=== PATIENT | female | born 1950 | race Caucasian/White ===

== ENCOUNTER 2021-05-22 09:32 | Emergency (ER) | payer MEDICARE, OTHER ==
--- NOTE | 2021-05-22 10:37 | EDM.PDOC ---
ED HPI GENERAL MEDICAL PROBLEM - General Chief Complaint: Lower Extremity Injury/Pain Stated Complaint: RIGHT HIP PAIN Time Seen by Provider: 05/22/21 10:00 Source of Information: Reports: Patient History Limitations: Reports: No Limitations - History of Present Illness INITIAL COMMENTS - FREE TEXT/NARRATIVE: pt with Hx of chronic right hip pain secondary to degenerative disease that she has for about 10 years comes in with c/o acute right hip pain started suddenly around noon , describe as sharp steady, worsens with any movement , denies fever, chills or Hx of injury or any other associated sx or concerns. right hip Pain Score (Numeric/FACES): 8 - Related Data Allergies Allergy/AdvReac Type Severity Reaction Status Date / Time Penicillins Allergy Hives Verified 05/22/21 09:45 Home Meds: Home Meds Aspirin [Lo-Dose Aspirin EC] 81 mg PO DAILY 05/22/21 [History] Cholecalciferol (Vitamin D3) [Vitamin D3] 2,000 unit PO DAILY 05/22/21 [History] Furosemide [Lasix] 20 mg PO DAILY 05/22/21 [History] Glucosam/Chond/Collagen/Hyalur [Glucosamine Chondroitin] 1 tab PO DAILY 05/22/21 [History] Losartan [Cozaar] 25 mg PO DAILY 05/22/21 [History] Metoprolol Succinate [Toprol XL 100mg] 100 mg PO DAILY 05/22/21 [History] Multivitamin 1 each PO DAILY 05/22/21 [History] Pantoprazole [ProTONIX] 40 mg PO DAILY 05/22/21 [History] atorvaSTATin [Lipitor] 20 mg PO DAILY 05/22/21 [History] Past Medical History HEENT History: Reports: Cataract Cardiovascular History: Reports: Blood Clots/VTE/DVT, Heart Failure, High Cholesterol, Hypertension, Stents Endocrine/Metabolic History: Reports: Diabetes, Type I Who Manages Your Pump: Patient (Self) Do You Give Correction Boluses or Sliding Scale: Yes Patient/Family Able to Supply Written Copy of Sliding Scale: No - Past Surgical History HEENT Surgical History: Reports: Cataract Surgery Cardiovascular Surgical History: Reports: Coronary Artery Bypass, Coronary Artery Stent GI Surgical History: Reports: Appendectomy, Cholecystectomy, Colonoscopy Female Surgical History: Reports: Section, Hysterectomy Musculoskeletal Surgical History: Reports: Amputation, Shoulder Surgery Social & Family History - Tobacco Use Tobacco Use Status *Q: Never Tobacco User - Alcohol Use Days Per Week of Alcohol Use: 3 Number of Drinks Per Day: 1 Total Drinks Per Week: 3 - Recreational Drug Use Recreational Drug Use: No Review of Systems - Review of Systems Review Of Systems: See Below Constitutional: Reports: No Symptoms Respiratory: Reports: No Symptoms Cardiovascular: Reports: No Symptoms GI/Abdominal: Reports: No Symptoms ED EXAM, GENERAL - Physical Exam Exam: See Below Exam Limited By: No Limitations General Appearance: Alert, Mild Distress Eye Exam: Bilateral Eye: Normal Inspection Respiratory/Chest: No Respiratory Distress, Lungs Clear Cardiovascular: Normal Peripheral Pulses, Regular Rate, Rhythm GI/Abdominal: Normal Bowel Sounds, Soft, Non-Tender Extremities: Normal Inspection, Other (tender with movement of right hip, no swelling or any deformities. ) Neurological: Alert, Oriented, CN II-XII Intact Course - Vital Signs Text/Narrative:: Xray shows no acute findings and labs are stable, sed rate is little up but would be nl for her age. pt is comfortable after Ativan and hydrocodone, she is ambulatory. her hip pain appear to be secondary to muscular pain and degenerative pain. will DC home with rx on Flexeril PRN for 1 week and recomandatrion for supportive mng Last Recorded V/S: Last Vital Signs Temp 36.2 C 05/22/21 11:33 Pulse 67 05/22/21 11:33 Resp 16 05/22/21 11:33 BP 134/64 05/22/21 11:33 Pulse Ox 99 05/22/21 11:33 - Orders/Labs/Meds Orders: Active Orders 24 hr Category Date Time Status Hip Min 2V or 3V w Pelvis Rt [CR] Stat Exams 05/22/21 09:45 Taken Labs: Laboratory Tests 05/22/21 05/22/21 Range/Units 10:55 10:55 WBC 7.0 (3.0-10.3) x10-3/uL RBC 3.82 (3.60-5.20) x10(6)uL Hgb 12.5 (11.4-15.5) g/dL Hct 37.8 (34.2-48.2) % MCV 99.0 (76.7-100.5) fL MCH 32.7 (23.9-33.9) pg MCHC 33.0 (31.9-34.8) g/dL RDW 15.8 (12.3-16.5) % Plt Count 186 (151-488) x10(3)uL ESR 25 H (0-20) mm/hr Sodium 143 (135-145) mmol/L Potassium 4.5 (3.5-5.3) mmol/L Chloride 103 (100-110) mmol/L Carbon Dioxide 31 (21-32) mmol/L BUN 31 H (7-18) mg/dL Creatinine 1.5 H (0.55-1.02) mg/dL Est Cr Clr Drug Dosing 27.21 mL/min Estimated GFR (MDRD) 34 L (>60) BUN/Creatinine Ratio 20.7 H (9-20) Glucose 147 H (80-116) mg/dL Calcium 8.8 (8.6-10.2) mg/dL Total Bilirubin 0.8 (0.1-1.3) mg/dL AST 23 (5-25) IU/L ALT 23 (12-36) U/L Alkaline Phosphatase 124 H (56-112) IU/L Total Protein 7.3 (6.0-8.0) g/dL Albumin 3.4 (3.2-4.6) g/dL Globulin 3.9 g/dL Albumin/Globulin Ratio 0.9 Meds: Medications Discontinued Medications Generic Name Dose Route Start Last Admin Trade Name Freq PRN Reason Stop Dose Admin Hydrocodone Bitart/Acetaminophen 1 tab 05/22/21 10:38 05/22/21 10:55 Acetaminophen/Hydrocodone 325-5 Mg Tab PO 05/22/21 10:39 1 tab ONETIME ONE Administration Lorazepam 1 mg 05/22/21 10:38 05/22/21 10:57 Lorazepam 2 Mg/Ml Sdv IM 05/22/21 10:39 1 mg ONETIME ONE Administration Departure - Departure Time of Disposition: 11:53 Disposition: Home, Self-Care 01 Clinical Impression: Hip pain, right - Discharge Information Referrals: Dominik Mae PA-C [Primary Care Provider] - Forms: ED Department Discharge Sepsis Event Note (ED) - Focused Exam Vital Signs: Vital Signs Temp Pulse Resp BP Pulse Ox 05/22/21 11:33 36.2 C 67 16 134/64 99 05/22/21 09:35 35.8 C L 60 20 160/73 H 96 - My Orders Last 24 Hours: My Active Orders 05/22/21 09:45 Hip Min 2V or 3V w Pelvis Rt [CR] Stat - Assessment/Plan Last 24 Hours: My Active Orders 05/22/21 09:45 Hip Min 2V or 3V w Pelvis Rt [CR] Stat
[2021-05-22] MEDS ORDERED: LORazepam 2 MG/ML SDV IM ONE (10:38)
[2021-05-22] MEDS ORDERED: Acetaminophen/HYDROcodone 325-5 MG Tab PO ONE (10:38)
--- NOTE | 2021-05-22 16:54 | CR ---
INDICATION: Pain. No history of trauma. RIGHT HIP WITH PELVIS: AP view of the pelvis, right hip, and lateral view of the right hip were obtained 05/22/21 - no comparisons. Diminished bone density is suggested which may be on the basis of osteoporosis or osteomalacia and should be correlated clinically. Hypertrophic degenerative changes and disc disease are noted at L4-L5. There appears to be narrowing of both hip joint spaces, right greater than left. Relatively minimal hypertrophic degenerative changes are noted at the hip joints, however. No acute bone or joint abnormality was seen. Calcifications are noted in iliac and especially femoral arteries. IMPRESSION: 1. Osteoarthritis. 2. ASD. 3. Suggestion of demineralization. 4. DJD and disc disease L4-L5. MTDD
== END 2021-05-22 12:20 | disposition home or self-care (01) ==
LOC: FB.ED 09:32
DX: M25.551 Pain in right hip (principal); I11.0 Hypertensive heart disease with heart failure; I50.9 Heart failure, unspecified; E78.00 Pure hypercholesterolemia, unspecified; E10.9 Type 1 diabetes mellitus without complications; Z95.1 Presence of aortocoronary bypass graft; Z88.0 Allergy status to penicillin; Z79.82 Long term (current) use of aspirin; Z79.899 Other long term (current) drug therapy
CPT/HCPCS: 36415; 73502; 80053; 85027; 85651; 96372; 99284; A9270; J2060

== ENCOUNTER 2021-06-03 15:08 | Inpatient (IN) | payer MEDICARE, OTHER ==
[2021-06-06] MEDS ORDERED: GLUCAGON 3 MG NAS PRN (16:22)
[2021-06-06] MEDS ORDERED: Nystatin Topical Powder 15 GM Bottle TOP PRN (16:22)
[2021-06-06] MEDS ORDERED: Non-Formulary Medication 1 Each (Insulin Detemir [Levemir] 100 UNIT/ML Pen) SUBCUT PRN (16:22)
[2021-06-06] MEDS ORDERED: INSULIN ASPART SCH (16:45)
[2021-06-06] MEDS ORDERED: Glucagon,Human Recombinant 1 MG Vial IM PRN (16:46)
[2021-06-06] MEDS: Acetaminophen 325 MG Tab PO SCH ×2 (17:27→21:07)
[2021-06-06] MEDS: Apixaban 5 MG Tab PO SCH (21:06)
[2021-06-06] MEDS: atorvaSTATin 20 MG Tab PO SCH (21:06)
[2021-06-06] MEDS: Cholecalciferol (Vitamin D3) 25 MCG Tab PO SCH (21:07)
[2021-06-07] MEDS: Albuterol/Ipratropium 3.0-0.5 MG/3 ML Neb Soln NEB PRN (01:00)
[2021-06-07] MEDS: Acetaminophen 325 MG Tab PO SCH ×4 (09:50→21:49)
[2021-06-07] MEDS: Metoprolol Succinate 100 MG Tab.ER PO SCH (09:55)
[2021-06-07] MEDS: Furosemide 20 MG Tab PO SCH (09:59)
[2021-06-07] MEDS: Apixaban 5 MG Tab PO SCH ×2 (09:59→21:48)
[2021-06-07] MEDS: Aspirin 81 MG Tab.EC PO SCH (09:59)
[2021-06-07] MEDS: Pantoprazole 40 MG Tab.CR PO SCH (10:00)
[2021-06-07] MEDS: Magnesium Chloride 64 MG Tab.ER PO SCH (10:00)
[2021-06-07] MEDS: Tiotropium BR/Olodaterol HCL 4 GM Inhalation Spray 2.5mcg/1 dose; 10 doses INH SCH (10:00)
[2021-06-07] MEDS: predniSONE 20 MG Tab PO SCH (10:00)
[2021-06-07] MEDS: atorvaSTATin 20 MG Tab PO SCH (21:49)
[2021-06-07] MEDS: Cholecalciferol (Vitamin D3) 25 MCG Tab PO SCH (21:51)
[2021-06-08] MEDS: Pantoprazole 40 MG Tab.CR PO SCH (06:28)
[2021-06-08] MEDS: Magnesium Chloride 64 MG Tab.ER PO SCH (09:27)
[2021-06-08] MEDS: Apixaban 5 MG Tab PO SCH ×2 (09:27→21:10)
[2021-06-08] MEDS: Furosemide 20 MG Tab PO SCH (09:27)
[2021-06-08] MEDS: Aspirin 81 MG Tab.EC PO SCH (09:27)
[2021-06-08] MEDS: Tiotropium BR/Olodaterol HCL 4 GM Inhalation Spray 2.5mcg/1 dose; 10 doses INH SCH (09:28)
[2021-06-08] MEDS: Metoprolol Succinate 100 MG Tab.ER PO SCH (09:28)
[2021-06-08] MEDS: Acetaminophen 325 MG Tab PO SCH ×4 (09:28→21:10)
[2021-06-08] MEDS: predniSONE 20 MG Tab PO SCH (09:28)
[2021-06-08] MEDS: Albuterol/Ipratropium 3.0-0.5 MG/3 ML Neb Soln NEB PRN (21:09)
[2021-06-08] MEDS: Cholecalciferol (Vitamin D3) 25 MCG Tab PO SCH (21:10)
[2021-06-08] MEDS: atorvaSTATin 20 MG Tab PO SCH (21:10)
[2021-06-09] MEDS: Pantoprazole 40 MG Tab.CR PO SCH (05:48)
[2021-06-09] MEDS: Aspirin 81 MG Tab.EC PO SCH (08:50)
[2021-06-09] MEDS: Apixaban 5 MG Tab PO SCH ×2 (08:51→21:29)
[2021-06-09] MEDS: Magnesium Chloride 64 MG Tab.ER PO SCH (08:51)
[2021-06-09] MEDS: Furosemide 20 MG Tab PO SCH (08:52)
[2021-06-09] MEDS: Tiotropium BR/Olodaterol HCL 4 GM Inhalation Spray 2.5mcg/1 dose; 10 doses INH SCH (08:53)
[2021-06-09] MEDS: Acetaminophen 325 MG Tab PO SCH ×4 (08:55→21:29)
[2021-06-09] MEDS: Metoprolol Succinate 100 MG Tab.ER PO SCH (09:00)
[2021-06-09] MEDS: Cholecalciferol (Vitamin D3) 25 MCG Tab PO SCH (21:29)
[2021-06-09] MEDS: atorvaSTATin 20 MG Tab PO SCH (21:29)
[2021-06-10] MEDS: Pantoprazole 40 MG Tab.CR PO SCH (06:39)
[2021-06-10] MEDS: Aspirin 81 MG Tab.EC PO SCH (09:26)
[2021-06-10] MEDS: Magnesium Chloride 64 MG Tab.ER PO SCH (09:26)
[2021-06-10] MEDS: Furosemide 20 MG Tab PO SCH (09:26)
[2021-06-10] MEDS: Tiotropium BR/Olodaterol HCL 4 GM Inhalation Spray 2.5mcg/1 dose; 10 doses INH SCH (09:26)
[2021-06-10] MEDS: Apixaban 5 MG Tab PO SCH ×2 (09:26→21:02)
[2021-06-10] MEDS: Metoprolol Succinate 100 MG Tab.ER PO SCH (09:27)
[2021-06-10] MEDS: Acetaminophen 325 MG Tab PO SCH ×4 (09:27→21:02)
--- NOTE | 2021-06-10 10:52 | PN ---
DATE SEEN: 06/08/2021 SUBJECTIVE: Molly Curtis is a 70-year-old female, sustained a fracture of the right hip. She underwent surgical management under the care of [facility]. Did have some cardiac irritability but discharged in good condition. Is undergoing therapy and care. MEDICATIONS: Reviewed and appropriate. OBJECTIVE: VITAL SIGNS: 36.7, 74, 134/51, 14, 98. GENERAL: Appears comfortable. NECK: Benign. Thyroid small. No carotid bruits. CHEST: Clear in all lung dougherty. No adventitious sounds. HEART: No ectopy or murmur. ABDOMEN: Benign. Surgical wound with lázaro intact. ASSESSMENT: Postop rehab, acute right hip fracture. PLAN: Therapy in place. We will check hemoglobin to make sure anemia is comfortable. /[id number] 1200 DRE/JACK
--- NOTE | 2021-06-10 10:52 | PN ---
DATE SEEN: 06/09/2021 SUBJECTIVE: Molly Curtis is a 70-year-old female seen today for review. Admitted to swing bed for surgically repaired right hip fracture. Pain is doing well. Moderate ambulatory skills and activity up and appropriate. PT more actively involved in the future. MEDICATIONS: Reviewed and appropriate. LABORATORY STUDIES: CBC revealed white count 12,500, hemoglobin 10.4, hematocrit 32.2, platelets 245,000. PHYSICAL EXAMINATION: GENERAL: Appears comfortable. Speech was fluent. NECK: Benign. CHEST: Clear in all lung dougherty. HEART: No ectopy or murmur. ABDOMEN: Benign. Surgical wound, right hip, intact. ASSESSMENT: Right hip fracture with rehab. PLAN: Meds, care, and treatment on board. Analgesics appropriate. PT more actively involved. /[id number] [id number] DRE/JACK
--- NOTE | 2021-06-10 10:52 | PN ---
DATE SEEN: 06/07/2021 Molly Curtis is a 70-year-old female admitted on 06/06 for rehab. She had an occult osteoporotic fracture of her right hip. Underwent surgical repair on 05/29, doing well. In here for rehab. Had a pretty good night. Sleep was a little bit impaired. Monitoring sugars closely, insulin pump in place. Pain is controlled. LABORATORY STUDIES: None. PHYSICAL EXAMINATION: VITAL SIGNS: Stable. Appears comfortable. CHEST: Clear in all lung dougherty. HEART: Regular. ABDOMEN: Benign. Incision was viewed with nursing staff in attendance, healing well. ASSESSMENT: Rehab right hip fracture. PLAN: Medications, care, and treatment. Appropriate diabetic diet. Complementary care and well being. /[id number] 1601 DRE/JACK
--- NOTE | 2021-06-10 10:52 | HP ---
ADMISSION DATE: 06/06/2021 CHIEF COMPLAINT: Right hip fracture rehabilitation. HISTORY OF PRESENT ILLNESS: Molly Curtis is a 70-year-old female, lives in [place], [place], was admitted to [facility] in transfer from [place]. She underwent surgical repair of right displaced femoral neck fracture under the care of Dr. Ibanez [facility]. She had a lengthy hospital course and was discharged for rehab care and treatment. She was seen in consultation by Cardiology and Endocrinology and appropriate providers. Was transferred for rehab and intervention. DAILY MEDICATIONS: Include: 1. Anoro Ellipta 1 puff one daily, COPD. 2. Baby aspirin 81 mg, CAD prevention. 3. Tramadol 50 mg q.i.d. p.r.n. for pain. 4. Magnesium chloride 64 mg daily, hypomagnesemia. 5. Prednisone 40 mg daily, 5 days duration. 6. Eliquis 5 mg b.i.d., atrial fibrillation and clot prevention. 7. Furosemide 20 mg 1 p.o. daily, edema. 8. Protonix 40 mg 1 p.o. daily, GERD. 9. Atorvastatin 20 mg 1 p.o. daily, hyperlipidemia . 10.Metoprolol-XL 100 mg 1 p.o. daily, blood pressure/CAD. 11.Vitamin D3 one daily, nutrition. 12.Levemir 12 units daily, . 13.Cal Nev Ari-3. 14.Insulin pump. ALLERGIES: Noted allergies include penicillin, adhesives, bee stings, Biaxin, latex, and talc. PAST MEDICAL HISTORY: Significant for again right hip prosthesis on 05/29/2021. She has had a remote appendectomy, remote primary section, remote cholecystectomy, coronary artery bypass surgery x3, hysterectomy for benign disease, right partial arm amputation, remote tonsillectomy, and tubal ligation. No other operative procedures, hospitalizations, unusual childhood diseases, major injuries, or fractures. Treated COPD, diabetes mellitus, hypertension, and hyperlipidemia. SOCIAL HISTORY: Lives in [place]. Happily , in good health. One grown son. 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 Former smoker, 2 pack per day, 25 years duration. No chewing, no vaping. FAMILY HISTORY: Noncontributory. REVIEW OF SYSTEMS: CONSTITUTIONAL: Feeling well. Pain is reasonable. EYES: Sees well. EARS: Hears well, some difficulty in crowds. OROPHARYNX: Intact dentition. CARDIOVASCULAR: Denies chest pain, though does have coronary artery bypass surgery. RESPIRATORY: Mild chronic cough, COPD. GASTROINTESTINAL: Regular predictable stools. GENITOURINARY: Good voiding pattern. No blood in urine. ORTHOPEDIC: Please see HPI. ENDOCRINE: Diabetes, under control. SKIN: No eruptions or lesions. PHYSICAL EXAMINATION: VITAL SIGNS: Stable. GENERAL: Elderly, cooperative, conversant, in good spirits. HEENT: Funduscopic benign. Bright TMs. Clear nasal discharge. Mouth and oropharynx are clear. Fair dentition. Tongue midline. NECK: Benign. Thyroid, small. No carotid bruits. CHEST: On auscultation, clear all lung dougherty. HEART: On auscultation, no ectopy or murmur. Sternotomy scar well healed. ABDOMEN: Benign. Multiple surgical scars well healed. No hepatosplenomegaly. GENITOURINARY AND RECTAL: Deferred. EXTREMITIES: Well perfused. Mild venous stasis changes. Good peripheral pulses. Sensation intact. Surgical staple wound of right hip intact. ASSESSMENT: Rehab stay for right total hip arthroplasty. SECONDARY DIAGNOSIS: Multiple health concerns clearly defined. PLAN: All looks well. Pain will be well controlled. PT/OT involved. Diabetic diet, insulin pump. Options for care and treatment. Expect a moderate length of stay. /[id number] 1650 DRE/JACK
--- NOTE | 2021-06-10 11:04 | PN ---
DATE SEEN: 06/10/2021 SUBJECTIVE: Molly Curtis is a delightful 70-year-old female in rehab therapy. Had a right hip replacement. Doing well. PT to be more actively involved. Pain appears to be controlled. Medications reviewed and appropriate all timely. OBJECTIVE: VITAL SIGNS: 36.3, 77, 151/76, 16, and 95. GENERAL: The patient appears comfortable. Mood was stable. NECK: Benign. CHEST: Clear. HEART: Regular. ABDOMEN: Benign. EXTREMITIES: Wound healing well. ASSESSMENT: 1. Rehab. 2. Right hip fracture and repair. PLAN: Continue PT. Determination of length of stay per PT. /[id number] 1055 DRE/JACK
[2021-06-10] MEDS: atorvaSTATin 20 MG Tab PO SCH (21:02)
[2021-06-10] MEDS: Cholecalciferol (Vitamin D3) 25 MCG Tab PO SCH (21:03)
[2021-06-11] MEDS: Pantoprazole 40 MG Tab.CR PO SCH (06:37)
[2021-06-11] MEDS: Magnesium Chloride 64 MG Tab.ER PO SCH (08:24)
[2021-06-11] MEDS: Metoprolol Succinate 100 MG Tab.ER PO SCH (08:24)
[2021-06-11] MEDS: Aspirin 81 MG Tab.EC PO SCH (08:25)
[2021-06-11] MEDS: Apixaban 5 MG Tab PO SCH ×2 (08:25→20:58)
[2021-06-11] MEDS: Furosemide 20 MG Tab PO SCH (08:25)
[2021-06-11] MEDS: Tiotropium BR/Olodaterol HCL 4 GM Inhalation Spray 2.5mcg/1 dose; 10 doses INH SCH (08:25)
[2021-06-11] MEDS: Acetaminophen 325 MG Tab PO SCH ×4 (08:26→20:59)
[2021-06-11] MEDS: atorvaSTATin 20 MG Tab PO SCH (20:59)
[2021-06-11] MEDS: Cholecalciferol (Vitamin D3) 25 MCG Tab PO SCH (21:00)
[2021-06-11] MEDS: traMADol 50 MG Tab PO PRN (23:38)
[2021-06-12] MEDS: Pantoprazole 40 MG Tab.CR PO SCH (05:02)
[2021-06-12] MEDS: Tiotropium BR/Olodaterol HCL 4 GM Inhalation Spray 2.5mcg/1 dose; 10 doses INH SCH (08:24)
[2021-06-12] MEDS: Aspirin 81 MG Tab.EC PO SCH (08:24)
[2021-06-12] MEDS: Metoprolol Succinate 100 MG Tab.ER PO SCH (08:25)
[2021-06-12] MEDS: Acetaminophen 325 MG Tab PO SCH ×4 (08:25→20:50)
[2021-06-12] MEDS: Magnesium Chloride 64 MG Tab.ER PO SCH (08:25)
[2021-06-12] MEDS: Apixaban 5 MG Tab PO SCH ×2 (08:26→20:49)
[2021-06-12] MEDS: Furosemide 20 MG Tab PO SCH (08:26)
--- NOTE | 2021-06-12 14:30 | PN ---
DATE SEEN: 06/11/2021 SUBJECTIVE: Molly Curtis is a 70-year-old female admitted for rehab status post right hip fracture. Doing remarkably well. Pain is controlled with limited intervention. Rehab is happy with well-being. LABORATORY STUDIES: Hemoglobin on 06/08/2021 was 10.4, white count 12,500. PHYSICAL EXAMINATION: VITAL SIGNS: Stable. NECK: Benign. Thyroid small. CHEST: Clear in all lung dougherty. HEART: No murmurs. ABDOMEN: Benign. Surgical wound healing well. ASSESSMENT: Right hip fracture repair. PLAN: Therapy in place. Short-term stay expected. /[id number] 1101 DRE/JACK
--- NOTE | 2021-06-12 14:31 | PN ---
DATE SEEN: 06/12/2021 SUBJECTIVE: Molly Curtis is a delightful 70-year-old female who has been in rehab. She had a right hip fracture which required surgical management. She is doing wonderfully. PT, OT happy with outcome. Plan discharge on 06/13/2021. Pain controlled comfortably. Laboratory studies, none recent. OBJECTIVE: VITAL SIGNS: Stable and noted. NECK: Benign. Thyroid small. CHEST: Clear in all lung dougherty. HEART: No ectopy or murmur. ABDOMEN: Benign. LABORATORY STUDIES: Noted magnesium 1.5, normal 1.8 to 2.5. Potassium 4.0, on replacement therapy. The wound was healing well. Ariane removed today. ASSESSMENT: Right hip fracture with surgical repair. PLAN: Ariane out today. Plan discharge home tomorrow. Outpatient physical therapy. /[id number] 1104 DRE/JACK
[2021-06-12] MEDS: atorvaSTATin 20 MG Tab PO SCH (20:49)
[2021-06-12] MEDS: Cholecalciferol (Vitamin D3) 25 MCG Tab PO SCH (20:50)
[2021-06-13] MEDS: traMADol 50 MG Tab PO PRN (01:59)
[2021-06-13] MEDS: Pantoprazole 40 MG Tab.CR PO SCH (06:20)
[2021-06-13] MEDS: Metoprolol Succinate 100 MG Tab.ER PO SCH (08:25)
[2021-06-13] MEDS: Acetaminophen 325 MG Tab PO SCH (08:25)
[2021-06-13] MEDS: Tiotropium BR/Olodaterol HCL 4 GM Inhalation Spray 2.5mcg/1 dose; 10 doses INH SCH (08:26)
[2021-06-13] MEDS: Furosemide 20 MG Tab PO SCH (08:26)
[2021-06-13] MEDS: Magnesium Chloride 64 MG Tab.ER PO SCH (08:26)
[2021-06-13] MEDS: Aspirin 81 MG Tab.EC PO SCH (08:26)
[2021-06-13] MEDS: Apixaban 5 MG Tab PO SCH (08:26)
--- NOTE | 2021-06-13 14:04 | PCM.DCSUM1 ---
Discharge Summary - Hospital Course HPI Initial Comments: Had right total hip replacement due to right femoral neck fracture secondary to osteoporosis done on 05/29/2021, Was seen by cardiology for atrial fibrillation started on Eliquis bid and aspirin dose decreased to 81 mg daily and endocrinology during her acute hospital stay. She was admitted 06/07/2021 to swing bed for rehab services. She has history of COPD, Diabetes, Hyperlipidemia, Hypertension. She has insulin pump and uses Levemir as needed if her pump fails. Diagnosis: Stroke: No - Discharge Data Discharge Date: 06/13/21 Discharge Disposition: Home, Self-Care 01 Condition: Good - Referral to Home Health Primary Care Physician: Dominik Mae PA-C - Discharge Diagnosis/Problem(s) (1) Status post total hip replacement, right SNOMED Code(s): 618236581170, 918425497887 ICD Code: Z96.641 - PRESENCE OF RIGHT ARTIFICIAL HIP JOINT Status: Acute Onset Date: ~05/29/21 (2) COPD (chronic obstructive pulmonary disease) SNOMED Code(s): 91443341 ICD Code: J44.9 - CHRONIC OBSTRUCTIVE PULMONARY DISEASE, UNSPECIFIED Status: Chronic (3) Diabetes SNOMED Code(s): 95869082 ICD Code: E11.9 - TYPE 2 DIABETES MELLITUS WITHOUT COMPLICATIONS Status: Chronic Qualifiers: Diabetes mellitus assistant terminal manager insulin use: with assistant terminal manager use (4) Hypertension SNOMED Code(s): 05335777 ICD Code: I10 - ESSENTIAL (PRIMARY) HYPERTENSION Status: Chronic (5) Hyperlipemia SNOMED Code(s): 18063680 ICD Code: E78.5 - HYPERLIPIDEMIA, UNSPECIFIED Status: Chronic - Patient Summary/Data Consults: Consultations 06/07/21 10:30 Consult to Occupational Therapy [OT Evaluation and Treatment] [CONS] Routine Please Evaluate and Treat. OT Reason for Consult: ADL's This query below is only for informational purposes and is not editable. Admission Diagnosis/Problem: Hip fracture requiring operative repair PT Evaluation and Treatment [CONS] Routine Please Evaluate and Treat. PT Reason for Consult: Strengthening This query below is only for informational purposes and is not editable. Admission Diagnosis/Problem: Hip fracture requiring operative repair Hospital Course: Molly progressed well with PT/OT during swing bed stay, will go home with outpatient PT/OT. She was started on Eliquis bid and aspirin reduced from 325 mg to 81 mg in [place], will go home with new prescriptions of these. Also she was started on Anoro for her COPD, she has been off oxygen during her stay. She had issues with swallowing extended release Magnesium so will be discharged with Magnesium oxide 400 mg bedtime that can be crushed and taken in applesauce. She was using Tylenol 650 mg qid scheduled and Tramadol as needed, she has not required any Tramadol since night. Will follow up with Dr Ibanez on Jul 15 a barron Lopez on Jul 21. - Patient Instructions Diet: Diabetic Diet Activity: As Tolerated Driving: May Drive Today Showering/Bathing: May Shower Notify Provider of: Fever, Increased Pain, Nausea and/or Vomiting Other/Special Instructions: Follow up with Dr Ibanez on Jul 15. Follow up with Dr Lopez on Jul 21. - Discharge Plan *PRESCRIPTION DRUG MONITORING PROGRAM REVIEWED*: Not Applicable *COPY OF PRESCRIPTION DRUG MONITORING REPORT IN PATIENT GIL: Not Applicable Prescriptions/Med Rec: Umeclidinium Brm/Vilanterol Tr [Anoro Ellipta 62.5-25 MCG] 1 puff IH DAILY #1 inhaler Apixaban [Eliquis] 5 mg PO BID #60 tab Aspirin [Lo-Dose Aspirin EC] 81 mg PO DAILY #30 tab Magnesium Oxide 400 mg PO BEDTIME #30 tablet Home Medications: Home Meds Cholecalciferol (Vitamin D3) [Vitamin D3] 2,000 unit PO BEDTIME 05/22/21 [History] Furosemide [Lasix] 20 mg PO BID 05/22/21 [History] Metoprolol Succinate [Toprol XL 100mg] 100 mg PO DAILY 05/22/21 [History] Pantoprazole [ProTONIX] 40 mg PO DAILY 05/22/21 [History] atorvaSTATin [Lipitor] 20 mg PO BEDTIME 05/22/21 [History] Acetaminophen [Tylenol] 650 mg PO QID 06/06/21 [History] Glucagon [Baqsimi] 3 mg SYMONE ASDIRECTED PRN 06/06/21 [History] Insulin Aspart [NovoLOG] 0 units .XX ASDIRECTED 06/06/21 [History] Insulin Detemir [Levemir] 12 units SUBCUT DAILY PRN 06/06/21 [History] Nystatin 1 applic TOP TID PRN 06/06/21 [History] Apixaban [Eliquis] 5 mg PO BID #60 tab 06/13/21 [Rx] Aspirin [Lo-Dose Aspirin EC] 81 mg PO DAILY #30 tab 06/13/21 [Rx] Magnesium Oxide 400 mg PO BEDTIME #30 tablet 06/13/21 [Rx] Umeclidinium Brm/Vilanterol Tr [Anoro Ellipta 62.5-25 MCG] 1 puff IH DAILY #1 inhaler 06/13/21 [Rx] Patient Handouts: Total Hip Replacement, Epry-lw-Dfia, Fall Prevention in Hospitals, Adult, Atrial Fibrillation, [id number], Venous Thromboembolism Prevention - Discharge Summary/Plan Comment DC Time >30 min.: No Total # of Minutes for Discharge Time: 15 min - General Info Date of Service: 06/13/21 Subjective Update: Molly is doing well, progressed with PT/OT, has not used any Tramadol for over 48 hours, scheduled Tylenol. She has been managing her blood sugars for her pump on her own. She had a bowel movement yesterday, urinating well. Will be going home with outpatient PT/OT in [place]. Functional Status: Reports: Pain Controlled, Tolerating Diet, Ambulating, Urinating - Patient Data Vitals - Most Recent: Last Vital Signs Temp 98.6 F 06/13/21 08:00 Pulse 86 06/13/21 08:25 Resp 18 06/13/21 08:00 BP 126/55 L 06/13/21 08:25 Pulse Ox 98 06/13/21 08:00 Weight - Most Recent: 186 lb 2 oz Med Orders - Current: Current Medications Discontinued Medications Acetaminophen (Acetaminophen 325 Mg Tab) 650 mg PO QID [facility] Last Admin: 06/13/21 08:25 Dose: 650 mg Documented by: Albuterol/Ipratropium (Albuterol/Ipratropium 3.0-0.5 Mg/3 Ml Neb Soln) 3 ml NEB Q6H PRN PRN Reason: Cough Last Admin: 06/08/21 21:09 Dose: 3 ml Documented by: Apixaban (Apixaban 5 Mg Tab) 5 mg PO BID [facility] Last Admin: 06/13/21 08:26 Dose: 5 mg Documented by: Aspirin (Aspirin 81 Mg Tab.Ec) 81 mg PO DAILY [facility] Last Admin: 06/13/21 08:26 Dose: 81 mg Documented by: Atorvastatin Calcium (Atorvastatin 20 Mg Tab) 20 mg PO BEDTIME [facility] Last Admin: 06/12/21 20:49 Dose: 20 mg Documented by: Cholecalciferol (Cholecalciferol (Vitamin D3) 25 Mcg Tab) 50 mcg PO BEDTIME [facility] Last Admin: 06/12/21 20:50 Dose: 50 mcg Documented by: Furosemide (Furosemide 20 Mg Tab) 20 mg PO DAILY [facility] Last Admin: 06/13/21 08:26 Dose: 20 mg Documented by: Glucagon (Glucagon,Human Recombinant 1 Mg Vial) 1 mg IM ASDIRECTED PRN PRN Reason: HYPOGLYCEMIA Magnesium Chloride (Magnesium Chloride 64 Mg Tab.Er) 64 mg PO DAILY [facility] Last Admin: 06/13/21 08:26 Dose: 64 mg Documented by: Metoprolol Succinate (Metoprolol Succinate 100 Mg Tab.Er) 100 mg PO DAILY [facility] Last Admin: 06/13/21 08:25 Dose: 100 mg Documented by: Non-Formulary Medication (Insulin Detemir [Levemir]) 12 units SUBCUT DAILY PRN PRN Reason: IN CASE OF PUMP FAILURE Novolog Per Insulin Pump *Patient Managed* 0 each .XX ASDIRECTED [facility] Nystatin (Nystatin Topical Powder 15 Gm Bottle) 0 gm TOP TID PRN PRN Reason: RASH/ITCHING Pantoprazole Sodium (Pantoprazole 40 Mg Tab.Cr) 40 mg PO DAILY@0600 [facility] Last Admin: 06/13/21 06:20 Dose: 40 mg Documented by: Prednisone (Prednisone 20 Mg Tab) 40 mg PO DAILY [facility] Stop: 06/11/21 09:01 Last Admin: 06/08/21 09:28 Dose: 40 mg Documented by: Tramadol HCl (Tramadol 50 Mg Tab) 50 mg PO QID PRN PRN Reason: MODERATE-SEVERE PAIN Last Admin: 06/13/21 01:59 Dose: 50 mg Documented by: - Exam General: Reports: Alert, Oriented, Cooperative Lungs: Reports: Clear to Auscultation, Normal Respiratory Effort Cardiovascular: Reports: Regular Rate, Irregular Rhythm GI/Abdominal Exam: Normal Bowel Sounds, Soft, Non-Tender, No Distention (Female) Exam: Deferred Rectal (Female) Exam: Deferred Extremities: No Pedal Edema, Normal Capillary Refill
== END 2021-06-13 12:10 | disposition home or self-care (01) | DRG 561 ==
LOC: UNDOADMIN 06-06 14:59 → FB.MS 06-06 14:59
PROVIDERS: ADMIT Family Medicine; ATTEND Family Medicine
DX: S72.001D Fracture of unspecified part of neck of right femur, subsequent encounter for closed fracture with routine healing (principal); Z96.641 Presence of right artificial hip joint; J44.9 Chronic obstructive pulmonary disease, unspecified; E11.9 Type 2 diabetes mellitus without complications; E78.5 Hyperlipidemia, unspecified; I10 Essential (primary) hypertension; Z79.899 Other long term (current) drug therapy; Z79.4 Long term (current) use of insulin; Z88.0 Allergy status to penicillin; Z91.030 Bee allergy status; Z91.09 Other allergy status, other than to drugs and biological substances; Z91.040 Latex allergy status; Z90.49 Acquired absence of other specified parts of digestive tract; Z90.710 Acquired absence of both cervix and uterus; Z79.52 Long term (current) use of systemic steroids; Z87.891 Personal history of nicotine dependence
CPT/HCPCS: 36415; 80048; 83735; 85027; 93005; 94640; 97110-GP; 97116-GP; 97161-GP; 97165-GO; 97530-GO; 97530-GP; 97535-GO; A9270-GY; J7512; J7620-GY